=== PATIENT | male | born 1950 | race Caucasian/White ===

== ENCOUNTER 2016-04-13 13:58 | Emergency (ER) | payer OTHER ==
[2016-04-13 14:12] VITALS: PULSE 77
--- NOTE | 2016-04-13 15:48 | EDPHY ---
H & P Time Seen by Provider: 04/13/16 15:40 HPI/ROS: CHIEF COMPLAINT: Ear pain HISTORY OF PRESENT ILLNESS: The patient is a 65 year old male presenting with right ear pain that started yesterday. The patient reports pain in his right ear that comes and goes. It has become progressively more irritating today. He feels his hearing is diminished in his right ear. The patient denies recent cold symptoms. No significant history of ear infections. Past Medical/Surgical History: Hypertension, Arthritis, Right upper extremity laminectomy Social History: Single. Lives in [place]. Smoking Status: Former smoker Physical Exam: General Appearance: Alert, pleasant Eyes: Pupils equal and round, no conjunctival pallor or injection ENT, Mouth: Mucous membranes moist. Ears: cerumen impaction bilaterally, right greater than left Neck: Normal inspection, no tenderness Neurological: A&O, nonfocal exam Skin: Warm and dry Psychiatric: Mood and affect normal Constitutional: Initial Vital Signs Temperature (C) 36.4 C 04/13/16 14:08 Heart Rate 77 04/13/16 14:08 Respiratory Rate 16 04/13/16 14:08 Blood Pressure 155/64 H 04/13/16 14:08 O2 Sat (%) 100 04/13/16 14:08 O2 Delivery Mode Room Air Allergies/Adverse Reactions: Sulfa (Sulfonamide Antibiotics) Allergy (Intermediate, Verified 11/10/15 10:56) Rash Home Medications: Medication Instructions Recorded Gabapentin [Neurontin 300 MG (*)] 300 mg PO TID 09/03/14 Methocarbamol [Robaxin 750 mg (*)] 750 mg PO TID PRN 09/03/14 Meloxicam 15 mg PO DAILY 11/10/15 Torsemide [Demadex] 40 mg PO DAILY10 11/10/15 Acetaminophen [Tylenol 325mg (*)] 650 mg PO Q4HRS PRN #0 tab 11/17/15 Multivitamins [Multivitamin (*)] 1 each PO DAILY #0 tab 11/17/15 Pantoprazole Sodium [Protonix 40mg 40 mg PO DAILY #0 tab 11/17/15 (*)] Vancomycin [Vancocin Oral Liquid] 125 mg PO QID #0 udl 11/17/15 morphINE SR [Ms Contin/Oramorph 15 15 mg PO BID #0 tab 11/17/15 mg (*)] oxyCODONE IR [Oxycodone Ir (*)] 20 mg PO Q6H PRN #0 tab 11/17/15 Medical Decision Making ED Course/Re-evaluation: This pt presents with bilateral cerumen impaction. I do not suspect another etiology for his symptoms. Copious cerumen gently removed by me using lighted ear curette. Small amount of bleeding from right ear canal after cerumen removal obscures TM. Will f/u ENT. Departure - Departure Disposition: Home, Routine, Self-Care Clinical Impression: Cerumen impaction Qualifiers: Laterality: right Qualified Code(s): H61.21 - Impacted cerumen, right ear Condition: Good Instructions: Cerumen Impaction (ED) Additional Instructions: You have been referred to an Ear, Nose, and Throat specialist. If you continue to have ear pain after 24 hours, call the physician provided to arrange a followup appointment. Referrals: Amadeo Graham MD [Primary Care Provider] - As per Instructions Flavio Alexander MD [Medical Doctor] - As per Instructions Report Scribed for: Dona Dennison Report Scribed by: Radha Jin Date of Report: 04/13/16 Time of Report: 15:48 Physician Review and Approval Statement: 04/13/16 15:48 Portions of this note were transcribed by a medical record librarians teacher. I personally performed the history, physical exam, and medical decision-making; and confirmed the accuracy of the information in the transcribed note.
[2016-04-13 16:08] VITALS: BP 149/88; RESP 12; TEMP 98.4; O2SAT 99
== END 2016-04-13 16:08 | disposition home or self-care (01) ==
PROC: F09Z3XZ Cerumen Management Treatment using Cerumen Management Equipment (ICD-10-PCS; principal; 2016-04-13)
DX: H61.21 Impacted cerumen, right ear (principal); I10 Essential (primary) hypertension; Z87.891 Personal history of nicotine dependence

== ENCOUNTER → 2016-10-01 | Outpatient (CLI) | payer OTHER | LOC: BMCIMAGING 15:48 | PROVIDERS: ATTEND Internal Medicine | DX: R06.00 Dyspnea, unspecified (principal); R60.9 Edema, unspecified ==

== ENCOUNTER 2016-10-10 18:38 | Emergency (ER) | payer OTHER ==
[2016-10-10 18:48] VITALS: BP 125/78; PULSE 88; RESP 16; TEMP 97.9; O2SAT 95
--- NOTE | 2016-10-10 18:54 | CPEKG ---
Heart Rate: 83 RR Interval: 723 P-R Interval: 188 QRSD Interval: 102 QT Interval: 380 QTC Interval: 447 P [place]: 26 QRS [place]: 35 T Wave [place]: 39 EKG Severity - BORDERLINE ECG - EKG Impression: SINUS RHYTHM EKG Impression: CONSIDER ANTERIOR INFARCT Electronically Signed By: Wilfredo Haywood 10-Oct-2016 20:55:15
--- NOTE | 2016-10-10 19:01 | EDPHY ---
H & P Stated Complaint: HEART POUNDING/RACING HPI/ROS: Chief Complaint: Palpitations HPI: 65-year-old male developed palpitations while he was being arrested this afternoon. Patient states that he has had increasing edema for the last couple of weeks. He was seen by his physician yesterday and had blood drawn today. Denies any chest pain or shortness of breath. Patient states he is feeling better now. Denies a history of coronary artery disease in the past. Denies any recent illness. No fevers or chills. No nausea or vomiting. Patient is brought in for medical clearance for residential. ROS: 10 point Review of Systems is negative except as noted in the HPI. 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 Social History: Denies smoking, positive for alcohol, no recreational drug use Family History: non-contributory Physical Exam: Gen: Awake, Alert, No Distress HEENT: Nose: no rhinorrhea Eyes: PERRLA, EOMI Mouth: Moist mucosa Neck: Supple, no JVD Chest: nontender, lungs clear to auscultation Heart: S1, S2 normal, no murmur Abd: Soft, non-tender, no guarding Back: no CVA tenderness, no midline tenderness Ext: 3+ nonpitting edema, non-tender Skin: no rash Neuro: CN II-XII intact, Sensation grossly intact, Strength 5/5 in bilateral upper and lower extremities - Personal History Current Tetanus Diphtheria and Acellular Pertussis (TDAP): Yes Tetanus Vaccine Date: 01/2014 - Medical/Surgical History Hx Asthma: No Hx Chronic Respiratory Disease: No Hx Diabetes: No Hx Cardiac Disease: No Hx Renal Disease: No Hx Cirrhosis: No Hx Alcoholism: No Hx HIV/AIDS: No Hx Splenectomy or Spleen Trauma: No Other PMH: L forefoot amp, HTN, ARTHRITIS, right rotator cuff surgery, bilat tib /fib surgery, RUE compartment syndrome, laminectomy. - Social History Smoking Status: Former smoker Constitutional: Initial Vital Signs Temperature (C) 36.6 C 10/10/16 18:46 Heart Rate 88 10/10/16 18:46 Respiratory Rate 16 10/10/16 18:46 Blood Pressure 125/78 H 10/10/16 18:46 O2 Sat (%) 95 10/10/16 18:46 O2 Delivery Mode Room Air Allergies/Adverse Reactions: Sulfa (Sulfonamide Antibiotics) Allergy (Intermediate, Verified 11/10/15 10:56) Rash Home Medications: Medication Instructions Recorded Gabapentin [Neurontin 300 MG (*)] 300 mg PO TID 09/03/14 Methocarbamol [Robaxin 750 mg (*)] 750 mg PO TID PRN 09/03/14 Meloxicam 15 mg PO DAILY 11/10/15 Acetaminophen [Tylenol 325mg (*)] 650 mg PO Q4HRS PRN #0 tab 11/17/15 Multivitamins [Multivitamin (*)] 1 each PO DAILY #0 tab 11/17/15 Lasix 10/10/16 Potassium 10/10/16 Medical Decision Making - Diagnostics EKG Interpretation: ECG time 18:50, there is a sinus rhythm with a rate of 83. Normal axis, normal intervals, there are Q-waves in leads 3 and AVF. There is also some T-wave inversions in V2 and V3. These are unchanged from an ECG of 10 November 2015. ED Course/Re-evaluation: 65-year-old male being brought in for medical clearance for residential. Patient had episode of palpitations while being arrested. He has no new changes on his ECG. He had laboratory is drawn today. In reviewing those patient does have some elevation in his liver function and a low albumin which is likely contributing to his edema. Otherwise no acute electrolyte abnormalities at this time. Patient is symptom-free here. There is no evidence of acute arrhythmia or ischemic process at this time. Patient's has no complaints here. He is refusing IV at this time. He is medically clear for residential. Departure - Departure Disposition: Home, Routine, Self-Care Clinical Impression: Palpitations, Alcohol intoxication Condition: Good Instructions: Palpitations (ED) Additional Instructions: Follow up with primary care physician in about a week. Return emergency depart for increasing chest pain, shortness of breath, fevers, chills, or any other concerns. MEDICALLY CLEAR FOR HALFWAY Referrals: Patient,NotPresent [Primary Care Provider] - As per Instructions
== END 2016-10-10 19:21 | disposition home or self-care (01) ==
LOC: EDUNIT#
DX: R00.2 Palpitations (principal); F10.129 Alcohol abuse with intoxication, unspecified; I50.9 Heart failure, unspecified; I10 Essential (primary) hypertension; Z87.891 Personal history of nicotine dependence

== ENCOUNTER 2016-10-22 14:59 | Emergency (ER) | payer OTHER ==
[2016-10-22 15:06] VITALS: TEMP 98.4
--- NOTE | 2016-10-22 15:27 | EDPHY ---
H & P Time Seen by Provider: 10/22/16 15:14 HPI/ROS: CHIEF COMPLAINT: Can't move his right foot HISTORY OF PRESENT ILLNESS: Patient started having symptoms last as he was sitting in the middle the day reading a book with his right leg crossed over his left. He suddenly realized he could not dorsiflex his right foot. Presents with continued symptoms, moderate in nature. Not associated with back pain or incontinence or headache or any trauma. Not associated with weakness or pain in the foot. Symptoms stable and not better worse with anything. He says it is difficult to walk even with his cane. REVIEW OF SYSTEMS: Eye: no change in vision ENT: no sore throat Cardiac: no chest pain or syncope Pulmonary: no cough or SOB Abdomen: no vomiting, diarrhea, abdominal pain Musculoskeletal: no back pain Skin: Right elbow rash and abrasion after the encounter with his dog Neuro: no headache Constitutional: no fever : no urinary symptoms A comprehensive 10 point review of systems is otherwise negative aside from elements mentioned in the history of present illness. PAST MEDICAL HISTORY: Includes hypertension, arthritis, rotator cuff surgery, spine surgery x2, left forefoot amputation. Social history: Lives in a house with a roommate General Appearance: Alert and conversant, cooperative. Eyes: No scleral icterus. ENT, Mouth: Normal mucous membranes. Respiratory: Normal respiratory effort, breath sounds equal, lungs are clear to auscultation. Cardiovascular: Regular rate and rhythm. Gastrointestinal: Abdomen is soft and non tender. Neurological: Alert and oriented x3. Normally conversant. Patient has normal sensation to light touch in all 4 extremities. He has normal capillary refill and perfusion in both feet. He cannot dorsiflex his right foot. Patellar reflexes are 0-1 and both patella and ankles. Toes are downgoing. Skin: Abrasion on his right elbow shows does not compromise full extension, no lymphangitis, no pus or drainage, no surrounding erythema. Musculoskeletal: No peripheral edema and no joint swelling. No spine tenderness. Psychiatric: Not agitated. Emergency Department course/MDM: Patient presents with isolated foot drop. Differentials extensive includes but not limited to vascular problem, peripheral neuropathy, spinal cord herniated disc, intracranial problem. 1530, Discussed with Dr. Christensen: noncontrast head CT r/o SDH and lumbar spine MRI. 164: MRI per Dr. Landeros shows severe central spinal canal stenosis at L1-2 with a central bulging disc otherwise negative. 1644: Discussed with V. 1655: Negative head CT per Dr. Landeros. 1700: Results discussed, Sudeep Biswas from Neurosurgery in the room consulting at this time 1722: Seen by Kateryna, plan to discharge on oral steroids and physical therapy for right L5 nerve root compression. Smoking Status: Former smoker Constitutional: Initial Vital Signs Temperature (C) 36.9 C 10/22/16 15:03 Heart Rate 83 10/22/16 15:03 Respiratory Rate 18 10/22/16 15:03 Blood Pressure 86/49 L 10/22/16 15:03 O2 Sat (%) 94 10/22/16 15:03 O2 Delivery Mode Room Air Allergies/Adverse Reactions: Sulfa (Sulfonamide Antibiotics) Allergy (Intermediate, Verified 10/22/16 15:01) Rash Home Medications: Medication Instructions Recorded Gabapentin [Neurontin 300 MG (*)] 300 mg PO TID 09/03/14 Methocarbamol [Robaxin 750 mg (*)] 750 mg PO TID PRN 09/03/14 Meloxicam 15 mg PO DAILY 11/10/15 Acetaminophen [Tylenol 325mg (*)] 650 mg PO Q4HRS PRN #0 tab 11/17/15 Multivitamins [Multivitamin (*)] 1 each PO DAILY #0 tab 11/17/15 Lasix 10/10/16 Potassium 10/10/16 Zantac 10/22/16 Medical Decision Making - Diagnostics Imaging Results: Imaging Impressions Head CT 10/22/16 15:32 Impression: Atrophy and microvascular ischemic disease. Findings and recommendations discussed with ALISIA YANEZ at 1655 hour, 2016. Final report concurs with initial preliminary interpretation. Lumbar Spine MRI 10/22/16 15:32 Impression: 1. Moderate canal stenosis at L3-L4, although this is only mildly increased compared to 2010. 2. Severe spinal canal stenosis at L1-L2, due to worsening broad-based central disk bulge and facet disease, new since 2009. 3. Multilevel foraminal stenosis as above described at the individual levels. Findings and recommendations discussed with Dr. Alisia Yanez at 1629 hour, 2016. Final report concurs with initial preliminary interpretation. - Data Points Laboratory Results: Laboratory Results 10/22/16 16:45 10/22/16 16:45 10/22/16 10/22/16 16:45 16:45 WBC 4.41 10^3/uL 10^3/uL (3.80-9.50) RBC 3.01 10^6/uL L 10^6/uL (4.40-6.38) Hgb 10.8 g/dL L g/dL (13.7-17.5) Hct 30.6 % L % (40.0-51.0) MCV 101.7 fL H fL (81.5-99.8) MCH 35.9 pg H pg (27.9-34.1) MCHC 35.3 g/dL g/dL (32.4-36.7) RDW 13.2 % % (11.5-15.2) Plt Count 251 10^3/uL 10^3/uL (150-400) MPV 9.8 fL fL (8.7-11.7) Neut % (Auto) 53.8 % % (39.3-74.2) Lymph % (Auto) 26.8 % % (15.0-45.0) [place] % (Auto) 15.2 % H % (4.5-13.0) Eos % (Auto) 3.2 % % (0.6-7.6) Baso % (Auto) 0.5 % % (0.3-1.7) Nucleat RBC Rel Count 0.0 % % (0.0-0.2) Absolute Neuts (auto) 2.38 10^3/uL 10^3/uL (1.70-6.50) Absolute Lymphs (auto) 1.18 10^3/uL 10^3/uL (1.00-3.00) Absolute Monos (auto) 0.67 10^3/uL 10^3/uL (0.30-0.80) Absolute Eos (auto) 0.14 10^3/uL 10^3/uL (0.03-0.40) Absolute Basos (auto) 0.02 10^3/uL 10^3/uL (0.02-0.10) Absolute Nucleated RBC 0.00 10^3/uL 10^3/uL (0-0.01) Immature Gran % 0.5 % % (0.0-1.1) Immature Gran # 0.02 10^3/uL 10^3/uL (0.00-0.10) Sodium 131 mEq/L L mEq/L (134-144) Potassium 3.3 mEq/L L mEq/L (3.5-5.2) Chloride 98 mEq/L mEq/L (97-110) Carbon Dioxide 21 mEq/l L mEq/l (22-31) Anion Gap 12 mEq/L mEq/L (8-16) BUN 10 mg/dL mg/dL (7-23) Creatinine 1.0 mg/dL mg/dL (0.7-1.3) Estimated GFR > 60 Glucose 86 mg/dL mg/dL (70-100) Calcium 7.8 mg/dL L mg/dL (8.5-10.4) Medications Given: Discontinued Medications Sodium Chloride (Ns) 1,000 mls @ 0 mls/hr IV EDNOW ONE; Wide Open PRN Reason: Protocol Stop: 10/22/16 15:34 Last Admin: 10/22/16 16:54 Dose: 1,000 mls Departure - Departure Disposition: Home, Routine, Self-Care Clinical Impression: Right foot drop Condition: Good Instructions: Foot Drop (ED) Referrals: Zohaib Dexter MD [Medical Doctor] - 5-7 days, call for appt. (Follow-up with Neurosurgery as discussed with Sudeep Biswas.)
[2016-10-22] MEDS ORDERED: NS 1,000 ML IV ONE (15:33)
[2016-10-22 16:58] VITALS: RESP 16; O2SAT 95
[2016-10-22 16:59] LABS: % IMMATURE GRANULYOCYTES 0.5 % (0.0-1.1); ABSOLUTE IMMATURE GRANULOCYTES 0.02 10^3/uL (0.00-0.10); ADD DIFF? NO; ADD MORPH? NO; ADD SCAN? NO; ATYPICAL LYMPHOCYTE FLAG 40 (0-99); FRAGMENT RBC FLAG 0 (0-99); HEMATOCRIT 30.6 % (40.0-51.0); HEMOGLOBIN 10.8 g/dL (13.7-17.5); LEFT SHIFT FLG 0 (0-99); LIPEMIA HEMOLYSIS FLAG 90 (0-99); MEAN CELL HEMOGLOBIN 35.9 pg (27.9-34.1); MEAN CELL HEMOGLOBIN CONCENTR. 35.3 g/dL (32.4-36.7); MEAN CELL VOLUME 101.7 fL (81.5-99.8); MEAN PLATELET VOLUME 9.8 fL (8.7-11.7); PLATELET CLUMPS FLAG 10 (0-99); PLATELET COUNT 251 10^3/uL (150-400); RED BLOOD CELL COUNT 3.01 10^6/uL (4.40-6.38); RED CELL DISTRIBUTION WIDTH 13.2 % (11.5-15.2)
[2016-10-22 17:14] LABS: ANION GAP 12 mEq/L (8-16); CALCIUM 7.8 mg/dL (8.5-10.4); CARBON DIOXIDE 21 mEq/l (22-31); CHLORIDE 98 mEq/L (97-110); GLOMERULAR FILTRATION RATE > 60; GLUCOSE 86 mg/dL (70-100); POTASSIUM 3.3 mEq/L (3.5-5.2); SODIUM 131 mEq/L (134-144)
[2016-10-22 18:00] VITALS: BP 117/70; PULSE 75
--- NOTE | 2016-10-23 08:21 | GCON ---
[f rep st] CONSULTATION NEUROSURGICAL CONSULTATION DATE OF CONSULTATION: 10/22/2016 CHIEF COMPLAINT: Right foot weakness. HISTORY OF PRESENT ILLNESS: The patient is a 65-year-old male. The patient has a history of a previ ous L4-5 instrumentation and fusion with Dr. Bryant in approximately 2008. Approximately 6 da ys ago, he noticed that he was having weakness in his left foot. He was having difficulty raising hi s foot up toward his head. This was not associated with back pain or pain radiating from his back do wn into his legs and feet. He denies any new problems walking, incontinence, fevers, or chills. PAST MEDICAL HISTORY: 1. Hypertension. 2. Osteoarthritis. 3. Chronic pain. PAST SURGICAL HISTORY: Includes L4-[address] Bryant in 2008. MEDICATIONS PRIOR TO ADMISSION: Please see medication list. ALLERGIES: Sulfa. FAMILY HISTORY: Patient has no family history of spinal problems. SOCIAL HISTORY: The patient is single with no children. He does drink alcohol socially, but denies smoking or drug use. REVIEW OF SYSTEMS: Negative. PHYSICAL EXAM: GENERAL APPEARANCE: Patient is a 65-year-old male lying in bed, in no apparent distr ess today. HEAD, EYES, EARS, NOSE, AND THROAT: Negative to drainage. EXTREMITIES: [place], warm, and dry. NEUROLOGICAL: Patient is awake, alert, oriented x4. Pupils equal, round, reactive to light. Extraocular motions are intact. There is no evidence of facial droop. Tongue and uvula are midline . Spinal access muscles are intact. His motor strength is 5 out of 5 in his arms and legs, except f or his left dorsiflexors, which are 0 out of 5, and his left extensor hallucis longus, which is 0 out of 5. Sensation is grossly intact to light touch in his arms and legs. Deep tendon reflexes are 1+ out of 4 in the bilateral biceps, triceps, brachioradialis, patellar, and Achilles. There is a nega tive Melchor with no clonus. DIAGNOSTIC STUDIES: An MRI of the lumbar spine from [facility] on 10/22/2016, shows preservation of the sagittal alignment. At L1-2, there is a right paracentral disk herniation that c auses right-sided foraminal stenosis and mild central canal stenosis. At L2-3, there is a right far lateral disk herniation that causes moderate foraminal stenosis and mild central canal stenosis. L4- 5 has postoperative changes from the decompression and fusion. At L5-S1, there is a broad-based left paracentral disk herniation extending into the foramen, causing compression of the left L5 nerve syl t between L5 and S1 pedicles. A head CT without contrast from today 10/22/2016, shows no acute hemorrhage or abnormality. IMPRESSION: This is a 65-year-old male with a 6-day history of left-sided footdrop, that is likely r elated to his left L5 nerve root compression between the left L5 and S1 pedicle. He is neurologicall y stable. PLAN: All the above discussed in detail with the patient. This patient was seen and examined by Dr. Dexter in the emergency department in ER room 9. At this point in time, we discussed with the patie nt that he has the option of trying conservative care with Medrol Dosepak, and a course of physical t herapy to see if we could improve the strength in his left foot. If his strength is not improving, t hen he would likely require an L5-S1 transforaminal lumbar interbody fusion with decompression of the left L5 nerve root. At this point in time, he would like to start on a course of conservative care. He will be discharged from the emergency department today with a Medrol Dosepak, and has a prescrip tion for some outpatient physical therapy. We will have him scheduled to come for a followup appoint ment with [facility] in approximately 1 to 2 weeks to evaluate his progress wit h physical therapy. He is encouraged to contact [facility] if any questions or problems prior to his followup appointment. /[id number]/MODL
== END 2016-10-22 17:57 | disposition home or self-care (01) ==
DX: M21.371 Foot drop, right foot (principal); I10 Essential (primary) hypertension; E86.9 Volume depletion, unspecified; Z87.891 Personal history of nicotine dependence

== ENCOUNTER → 2016-10-27 | Outpatient (CLI) | payer OTHER | LOC: BMCIMAGING 13:23 | PROVIDERS: ATTEND Internal Medicine | DX: K76.0 Fatty (change of) liver, not elsewhere classified (principal); N28.1 Cyst of kidney, acquired ==

== ENCOUNTER 2016-12-11 05:44 | Inpatient (IN) | payer OTHER ==
[2016-12-11] MEDS ORDERED: ACETAMINOPHEN 500 MG TAB PO ONE (05:50)
[2016-12-11] MEDS ORDERED: fentaNYL 100 MCG/2 ML INJ IT ONE (05:50)
[2016-12-11] MEDS ORDERED: morphINE PF 5 MG/10 ML INJ IT ONE (05:50)
[2016-12-11] MEDS ORDERED: ceFAZolin 2 GM/SWFI 2 GM/20 ML SYR IVP ONE (05:50)
[2016-12-11] MEDS ORDERED: GABAPENTIN 300 MG CAP PO ONE (05:50)
[2016-12-11] MEDS ORDERED: LIDOCAINE 1% 2 ML INJ ID PRN (05:52)
[2016-12-11] MEDS ORDERED: LR 1,000 ML IV ONE (05:52)
[2016-12-11] MEDS ORDERED: TRANEXAMIC ACID 1,000 MG in NS 100 ML IV ONE (06:00)
--- NOTE | 2016-12-11 06:17 | PDHPUP ---
History & Physical Update H&P update statement: This history and physical update is based on an assessment of the patient which was completed after admission or registration (within 24 hours), but prior to the surgery/procedure. H&P update: H&P reviewed & patient examined, no change in patient's condition since H&P completed
[2016-12-11] MEDS ORDERED: BUPIVACAINE 0.25% 30 ML SDV ONE (06:48)
[2016-12-11] MEDS ORDERED: BACITRACIN 50,000 UNITS/10 ML SYR IRR ONE ×2 (06:49→11:43)
[2016-12-11] MEDS ORDERED: THROMBIN (BOVINE) 5,000 UNIT VIAL TP ONE (06:49)
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
[2016-12-11] MEDS ORDERED: PROPOFOL 200 MG/20 ML VIAL ONE (06:55)
[2016-12-11] MEDS ORDERED: REMIFENTANIL HCL 1 MG VIAL ONE ×3 (06:55→11:36)
[2016-12-11] MEDS ORDERED: PROPOFOL/EMULSION 500 MG/50 ML BOTTLE IV ONE ×3 (06:55→11:36)
[2016-12-11] MEDS ORDERED: fentaNYL 100 MCG/2 ML INJ ONE ×4 (06:55→14:38)
[2016-12-11] MEDS ORDERED: DEXAMETHASONE 4 MG/ML VIAL ONE (07:05)
[2016-12-11] MEDS ORDERED: ROCURONIUM 50 MG/5 ML VIAL ONE (07:05)
[2016-12-11] MEDS ORDERED: PHENYLEPHRINE 10 MG/ML SDV ONE (07:18)
[2016-12-11 08:01] LABS: PLATELET COUNT 184 10^3/uL (150-400)
[2016-12-11] MEDS ORDERED: CITRATE DEXTROSE SOLN 500 ML BAG ONE ×2 (08:01→12:16)
[2016-12-11 08:09] LABS: INR 1.26 (0.83-1.16); PROTIME(PATIENT) 15.8 SEC (12.0-15.0)
[2016-12-11] MEDS ORDERED: HYDROmorphONE/DILAUDID 2 MG/ML INJ ONE (09:07)
[2016-12-11] MEDS ORDERED: THROMBIN (BOVINE) 20,000 UNIT VIAL TP ONE ×2 (09:57→11:24)
[2016-12-11] MEDS ORDERED: ceFAZolin 1 GM VIAL ONE (11:05)
[2016-12-11] MEDS ORDERED: LACTULOSE 20 GM/30 ML UDCUP PO PRN (14:14)
[2016-12-11] MEDS ORDERED: oxyCODONE IR 5 MG TAB PO PRN (14:14)
[2016-12-11] MEDS ORDERED: ONDANSETRON 4 MG/2 ML VIAL IVP PRN ×2 (14:14→14:20)
[2016-12-11] MEDS ORDERED: ONDANSETRON DISINTEGRATING 4 MG TAB PO PRN (14:14)
[2016-12-11] MEDS ORDERED: diphenhydrAMINE 25 MG CAP PO PRN (14:14)
[2016-12-11] MEDS ORDERED: MAGNESIUM HYDROXIDE 30 ML UDCUP PO PRN (14:14)
[2016-12-11] MEDS ORDERED: NALOXONE HCL 0.4 MG/ML INJ IVP PRN ×2 (14:14→14:20)
[2016-12-11] MEDS ORDERED: BISACODYL 10 MG SUPP PR PRN (14:14)
[2016-12-11] MEDS ORDERED: morphINE PCA 30 MG/30 ML PCA IV PRN (14:14)
[2016-12-11] MEDS ORDERED: NS W/ 20 KCl/L 1,000 ML IV SCH (14:15)
[2016-12-11] MEDS ORDERED: LR 500 ML IV PRN (14:20)
[2016-12-11] MEDS ORDERED: PROMETHAZINE HCL 25 MG/ML INJ IVP PRN (14:20)
[2016-12-11] MEDS ORDERED: LABETALOL HCL 50 MG/10 ML SYR IVP PRN (14:20)
[2016-12-11] MEDS ORDERED: HYDROmorphONE/DILAUDID 1 MG/ML INJ IVP PRN (14:20)
[2016-12-11] MEDS ORDERED: OXYCODONE/APAP 5/325 TAB PO PRN (14:20)
[2016-12-11] MEDS ORDERED: ALBUTEROL 3 ML DEYVIAL IH PRN (14:20)
[2016-12-11] MEDS ORDERED: ACETAMINOPHEN 500 MG TAB PO PRN (14:20)
--- NOTE | 2016-12-11 14:20 | POSTANESTH ---
Post Anesthetic Evaluation Cardiovascular Status: Normal, Stable Respiratory Status: Normal, Stable Level of Consciousness/Mental Status: Can Participate in Eval Pain Control: Adequate, Prn Tx Ordered Nausea/Vomiting Control: Adequate, Prn Tx Ordered Complications Possibly Related to Anesthesia: None Noted
--- NOTE | 2016-12-11 14:21 | SOAPPROG ---
SOAP Progress Note Assessment/Plan: Assessment: 66 yo M sp L2-S1 fusion Plan: stable to 3N LSO brace when out of bed lovenox starts POD #1 please call with neuro changes 12/11/16 14:19 Subjective: + back pain, no leg pain Objective: Vital Signs Temp Pulse Resp BP Pulse Ox 36.5 C 56 L 20 116/70 91 L 12/11/16 06:37 12/11/16 06:53 12/11/16 06:53 12/11/16 06:53 12/11/16 06:53 Laboratory Results 12/11/16 07:40 12/11/16 10:30 PT 15.8 SEC (12.0-15.0) H 12/11/16 07:40 INR 1.26 (0.83-1.16) H 12/11/16 07:40 awake, alert PERRL, no facial droop BLANCHE 4 + light touch ICD10 Worksheet Patient Problems: Problems Problem Status Onset Alcohol abuse Acute Altered mental status Acute C. difficile diarrhea Acute 11/11/15 Cervical vertebral fusion Acute Compartment syndrome of right upper extremity Acute Hyponatremia Acute Leukocytosis Acute Multiple rib fractures Acute Rhabdomyolysis Acute Staph aureus infection Acute
[2016-12-11] MEDS: fentaNYL 100 MCG/2 ML INJ IVP PRN ×2 (15:15→15:35)
--- NOTE | 2016-12-11 15:50 | GOP ---
[f rep st] OPERATIVE REPORT DATE OF OPERATION: 12/11/2016 SURGEON: Daniel Bryant MD NEUROSURGEON: Daniel Bryant MD HEAT SEAL OPERATOR: MARISABEL West ANESTHESIA: General endotracheal. 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 Intractable back pain. Intractable bilateral lower extremity radicu lopathy and significant footdrop bilaterally. Failed conservative care. POSTOPERATIVE DIAGNOSIS: Severe multilevel lumbar degenerative joint disease with degenerative scoli osis and severe spinal stenosis. Intractable back pain. Intractable bilateral lower extremity radic ulopathy and significant footdrop bilaterally. Failed conservative care. PROCEDURE PERFORMED: Removal of posterior segmental (pedicle screw) fixation at L4-5 with exploratio n of spinal fusion at that level and Re-insertion of spinal fixation device with placement of posteri or segmental (pedicle screw) fixation from L2 through S1. Left-sided far lateral transpedicular deco mpression at the L2-3, L3-4, L4-5 and L5-S1 levels with right-sided decompressions at L4-5 and L5-S1. L2-3, L3-4 and L5-S1 posterior/transforaminal lumbar interbody fusions with L2 through S1 posterolat eral fusion with local autograft and bone morphogenic protein. Use of 2 structural PEEK spacers, loc al autograft and bone morphogenic protein at each of the transforaminal lumbar interbody fusion level s. Use of intraoperative microscopy, fluoroscopy and computer volumetric stereotactic navigation wit h intraoperative neurophysiologic testing. Injection of intrathecal narcotic analgesics and subcutan eous and intramuscular local anesthesia for postoperative pain control. FINDINGS: ESTIMATED BLOOD LOSS: 500 cc. INDICATIONS: The patient is a 66-year-old man with severe lumbar degenerative scoliosis with critica l spinal stenosis and progressive loss of function in his lower extremities. He has severe stenosis and presents now for surgical decompression and stabilization with extension of the fusion, removal a nd replacement of instrumentation. DESCRIPTION OF PROCEDURE: After informed consent was obtained, the patient was taken to the operatin g room and placed in the prone position on the Himanshu table. The lumbosacral area was prepped and d raped in a sterile fashion. After fluoroscopic localization of correct levels, the subcutaneous and intramuscular tissues were infiltrated with local anesthesia. A midline linear incision was then cre ated from approximately L4 through S1. This was carried down to the fascial layer, which was incised using monopolar electrocautery and carried, as best I could, in a subperiosteal plane along the spin ous processes and lamina bilaterally. There was an extensive amount of abnormal tissue and distorted anatomy that required meticulous dissection. Eventually, the prior hardware was identified on the l eft at the L4 and L5 levels and the locking caps, rods and pedicle screws were all removed. The hole s were packed with dry Gelfoam. Following this, left-sided far lateral transpedicular decompressions were performed at the L5-S1 and L4-5 levels with actually right-sided decompressions at those levels as well. Unfortunately, the patient had severe stenosis which required facetectomies at the L3-4 le julisa in order to adequately decompress the stenotic area at the L4-5 levels. This meant that he was g oing to need instrumentation and fusion at the L3-4 level but, in reviewing the preoperative images, the apex of his curve was at L3 and it was not in his best interest to stop there. He also had signi ficant spinal stenosis at L2-3 and L3-4 that we were not planning on addressing but, under the circum stances, I think we should. The incision was therefore carried up to L2 and a subperiosteal dissecti on ensued and the tissues all carefully dissected out. Left-sided far lateral transpedicular decompr essions were then performed after L5-S1, and L4-5 levels were completed and this was extended up to t he L3-4 and L2-3 levels with complete unroofing of the facet joint and neural foramina on the left si de, as well as bilateral decompression by angling the microscope across the midline. The [employer] ronavigational system was then brought in and, using computer volumetric stereotactic navigation, ped icle screws were placed at L2, L3, L4, L5, and S1 bilaterally. Each individual screw was tested neur ophysiologically with monopolar electrostimulation and interpretation of the potentials by the braulio montenegro. The short rods were then inserted first at L5-S1, then at L3-4, then at L2-3 during which time a slight amount of distraction was created across the interspaces and complete diskectomies were perfor med with preparation of the endplates and placement of 2 structural PEEK interbody spacers, local aut ograft and bone morphogenic protein at each level for L2-3, L3-4 and L5-S1 posterior/transforaminal l umbar interbody fusions. The short rods were then removed, and longer rods extending from L2 to S1 w ere then placed and secured under compression in order to facilitate bony union and to minimize the p otential for posterior graft migration. There was a maximal amount of lordosis placed in the arian in the construct in order to minimize the potential for flat back syndrome. Following this, the wound w as copiously irrigated with antibiotic irrigation and meticulous hemostasis was achieved. The remain ing facet joints and lamina were then extensively decorticated along with the transverse processes an d the local autograft along with bone morphogenic protein was placed out laterally for posterolateral fusion from L2 through S1. Following this, a drain was placed. The subcutaneous and intramuscular tissues were re-infiltrated with local anesthesia. The wound was closed in a layered fashion using i nterrupted Vicryl sutures followed by Steri-Strips on the skin, after re-verification of good positio n of the screws, rods and interbody spacers at each of the 3 levels that had interbody fusions. COMPLICATIONS: None. DISPOSITION: The patient was extubated and transferred to the recovery room in stable condition. /[id number]/MODL
[2016-12-11] MEDS: POLYETHYLENE GLYCOL 3350 17 GM PKT PO SCH ×2 (16:17→20:33)
[2016-12-11] MEDS: METHOCARBAMOL 750 MG TAB PO PRN (16:50)
[2016-12-11] MEDS: SENNOSIDES/DOCUSATE SODIUM TAB PO SCH (20:33)
[2016-12-11] MEDS: ceFAZolin 2 GM/DEXTROSE 100 ML IV SCH (20:33)
[2016-12-11] MEDS: ACETAMINOPHEN 500 MG TAB PO SCH (20:33)
[2016-12-11] MEDS: FAMOTIDINE 20 MG TAB PO SCH (20:33)
[2016-12-11] MEDS: morphINE SR 30 MG TAB PO SCH (20:33)
[2016-12-11] MEDS: DIAZEPAM 5 MG TAB PO PRN (20:35)
[2016-12-11] MEDS: oxyCODONE IR 5 MG TAB PO PRN (20:35)
[2016-12-12] MEDS: oxyCODONE IR 5 MG TAB PO PRN ×5 (02:52→21:51)
[2016-12-12] MEDS: ceFAZolin 2 GM/DEXTROSE 100 ML IV SCH (02:52)
[2016-12-12] MEDS: METHOCARBAMOL 750 MG TAB PO PRN ×3 (02:53→15:51)
[2016-12-12 05:07] LABS: PLATELET COUNT 154 10^3/uL (150-400)
[2016-12-12] MEDS: ACETAMINOPHEN 500 MG TAB PO SCH ×3 (05:45→21:50)
--- NOTE | 2016-12-12 08:07 | NEUSURGPN ---
Assessment/Plan: Assessment: 66 yo M sp L2-S1 fusion - POD#1 Plan: PT/OT Post op xrays pending MARQUITA productive, leave in for now Has chronic DF weakness bilaterally Known high ETOH user, monitor for DTs Pain management LSO brace when out of bed lovenox starts POD #1 please call with neuro changes D/w Dr Vigil Subjective: Pt resting in bed, c/o back pain. Denies numbness/tingling. Objective: AAOx3 NAD VSS MAEx4 Motor 5/5 BLE with exception of bilat DF appx 3+/[address]: Yes Urinary Catheter Indication: Other (Use Comment) (to be removed today) Catheter Insertion Date: 12/11/16 - Physician Discussed Patient with : Manny Neurosurgery Physical Exam - Vitals, I&O, Labs I and O 12/11/16 12/12/16 12/13/16 05:59 05:59 05:59 Intake Total 2950 Output Total 2530 360 Balance 420 -360 Weight 86.183 kg Intake: Oral (ml) 450 IV Intake (ml) 2500 Output: Urine (ml) 1500 300 Catheter 1500 300 Estimated Blood Loss (ml) 800 MARQUITA Drain Output (ml) 230 60 Left Back Him[place]hu [place] 230 60 Other: Intake Quantity Yes Sufficient Number of Voids Catheter 1 Vital Signs Temp Pulse Resp BP Pulse Ox 37.1 C 65 14 96/44 L 97 12/12/16 07:29 12/12/16 07:29 12/12/16 07:29 12/12/16 07:29 12/12/16 07:29 Laboratory Results 12/12/16 04:21 12/12/16 04:21 ICD10 Worksheet Patient Problems: Problems Problem Status Onset Alcohol abuse Acute Altered mental status Acute C. difficile diarrhea Acute 11/11/15 Cervical vertebral fusion Acute Compartment syndrome of right upper extremity Acute Hyponatremia Acute Leukocytosis Acute Multiple rib fractures Acute Rhabdomyolysis Acute Staph aureus infection Acute
[2016-12-12] MEDS: busPIRone 15 MG TAB PO SCH (09:13)
[2016-12-12] MEDS: FAMOTIDINE 20 MG TAB PO SCH ×2 (09:13→21:50)
[2016-12-12] MEDS: ENOXAPARIN 40 MG/0.4 ML SYR SC SCH (09:13)
[2016-12-12] MEDS: hydrOXYzine HCL 25 MG TAB PO SCH ×2 (09:14→21:51)
[2016-12-12] MEDS: SENNOSIDES/DOCUSATE SODIUM TAB PO SCH ×2 (09:14→21:50)
[2016-12-12] MEDS: morphINE SR 30 MG TAB PO SCH ×2 (09:14→21:50)
[2016-12-12] MEDS: POLYETHYLENE GLYCOL 3350 17 GM PKT PO SCH ×3 (09:14→21:49)
[2016-12-12] MEDS: GABAPENTIN 300 MG CAP PO SCH ×3 (09:14→21:50)
[2016-12-12] MEDS: TAMSULOSIN HCL 0.4 MG CAP PO SCH (09:15)
[2016-12-12] MEDS: TIOTROPIUM INHALER 18 MCG/DOSE 5 DOSE/MDI IH SCH (09:47)
[2016-12-12] MEDS: FUROSEMIDE 40 MG TAB PO SCH (11:39)
[2016-12-12] MEDS: POTASSIUM CL 10 MEQ TAB PO SCH (11:40)
--- NOTE | 2016-12-12 13:55 | ASMTCMCOM ---
CM Note CM Note Notes: Pt had planned spinal surgery. Lives alone. PT/OT rec inpatient rehab, Judith is assessing and needs more therapy input so she will follow Thursday. Inpatient rehab order requested to [facility]. Provided information to pt about inpatient rehab and the assessment process. CM to follow. Date Signed: 12/12/2016 01:54 PM Electronically Signed By:NEVAEH Dietrich
[2016-12-12] MEDS: CARVEDILOL 6.25 MG TAB PO SCH (18:25)
[2016-12-12] MEDS ORDERED: NON-FORMULARY NEW DRUG (Ranitidine Hcl [Zantac] 300 MG) PO SCH (21:00)
[2016-12-12] MEDS ORDERED: FAMOTIDINE 20 MG TAB PO SCH (21:00)
[2016-12-13] MEDS: oxyCODONE IR 5 MG TAB PO PRN ×6 (02:10→22:15)
[2016-12-13] MEDS: METHOCARBAMOL 750 MG TAB PO PRN ×3 (02:11→17:19)
[2016-12-13] MEDS: ACETAMINOPHEN 500 MG TAB PO SCH ×3 (06:01→21:18)
--- NOTE | 2016-12-13 07:50 | SOAPPROG ---
SOAP Progress Note Assessment/Plan: Assessment: 66 yo M sp L2-S1 fusion - POD#2 Plan: PT/OT Post op xrays show good alignment with intact hardware MARQUITA productive, (220) leave in for now Has chronic DF weakness bilaterally Known high ETOH user, monitor for DTs Pain management LSO brace when out of bed lovenox for DVT ppx awaiting rehab eval, ? d/c thursday will order new H/H for tomorrow please call with neuro changes 12/13/16 07:47 Subjective: no new complaints, still a lot of back pain Objective: Vital Signs Temp Pulse Resp BP Pulse Ox 37.9 C 86 16 140/72 H 94 12/12/16 23:46 12/12/16 23:46 12/12/16 23:46 12/12/16 23:46 12/12/16 23:46 Laboratory Results 12/12/16 04:21 12/12/16 04:21 12/12/16 12/13/16 12/14/16 05:59 05:59 04:59 Intake Total 2950 250 Output Total 2530 1020 Balance 420 -770 PT 15.8 SEC (12.0-15.0) H 12/11/16 07:40 INR 1.26 (0.83-1.16) H 12/11/16 07:40 AAOx3, full strength and sensation except mild bilateral DF weakness, no drift, dressings c/d/i - Pending Discharge Pending Discharge Within 24 Hours: No Pending Discharge Within 48 Hours: Yes Pending Discharge Date: 12/15/16 Pending Discharge Time: 11:00 ICD10 Worksheet Patient Problems: Problems Problem Status Onset Alcohol abuse Acute Altered mental status Acute C. difficile diarrhea Acute 11/11/15 Cervical vertebral fusion Acute Compartment syndrome of right upper extremity Acute Hyponatremia Acute Leukocytosis Acute Multiple rib fractures Acute Rhabdomyolysis Acute Staph aureus infection Acute
[2016-12-13] MEDS: TIOTROPIUM INHALER 18 MCG/DOSE 5 DOSE/MDI IH SCH (08:56)
[2016-12-13] MEDS: ENOXAPARIN 40 MG/0.4 ML SYR SC SCH (09:38)
[2016-12-13] MEDS: POLYETHYLENE GLYCOL 3350 17 GM PKT PO SCH ×3 (09:38→21:17)
[2016-12-13] MEDS: morphINE SR 30 MG TAB PO SCH ×2 (09:38→21:18)
[2016-12-13] MEDS: GABAPENTIN 300 MG CAP PO SCH ×3 (09:39→21:19)
[2016-12-13] MEDS: CARVEDILOL 6.25 MG TAB PO SCH ×2 (09:39→18:12)
[2016-12-13] MEDS: TAMSULOSIN HCL 0.4 MG CAP PO SCH (09:39)
[2016-12-13] MEDS: hydrOXYzine HCL 25 MG TAB PO SCH ×2 (09:39→21:20)
[2016-12-13] MEDS: POTASSIUM CL 10 MEQ TAB PO SCH (09:39)
[2016-12-13] MEDS: FAMOTIDINE 20 MG TAB PO SCH ×2 (09:39→21:19)
[2016-12-13] MEDS: FUROSEMIDE 40 MG TAB PO SCH (09:39)
[2016-12-13] MEDS: busPIRone 15 MG TAB PO SCH (09:39)
[2016-12-13] MEDS: SENNOSIDES/DOCUSATE SODIUM TAB PO SCH ×2 (09:40→21:19)
[2016-12-13] MEDS ORDERED: PNEUMOC 13-VAL CONJ-DIP CRM/PF 0.5 ML SYR IM ONE (14:35)
[2016-12-14] MEDS: oxyCODONE IR 5 MG TAB PO PRN ×5 (01:51→22:06)
[2016-12-14] MEDS: METHOCARBAMOL 750 MG TAB PO PRN (01:51)
[2016-12-14] MEDS: ACETAMINOPHEN 500 MG TAB PO SCH ×3 (07:16→22:05)
[2016-12-14] MEDS: ENOXAPARIN 40 MG/0.4 ML SYR SC SCH (08:29)
[2016-12-14] MEDS: SENNOSIDES/DOCUSATE SODIUM TAB PO SCH ×2 (08:31→22:24)
[2016-12-14] MEDS: FAMOTIDINE 20 MG TAB PO SCH ×2 (08:31→22:05)
[2016-12-14] MEDS: CARVEDILOL 6.25 MG TAB PO SCH ×2 (08:31→18:19)
[2016-12-14] MEDS: FUROSEMIDE 40 MG TAB PO SCH (08:31)
[2016-12-14] MEDS: GABAPENTIN 300 MG CAP PO SCH ×3 (08:31→22:06)
[2016-12-14] MEDS: hydrOXYzine HCL 25 MG TAB PO SCH ×2 (08:32→22:06)
[2016-12-14] MEDS: TAMSULOSIN HCL 0.4 MG CAP PO SCH (08:32)
[2016-12-14] MEDS: morphINE SR 30 MG TAB PO SCH ×2 (08:32→22:05)
[2016-12-14] MEDS: busPIRone 15 MG TAB PO SCH (08:32)
[2016-12-14] MEDS: POTASSIUM CL 10 MEQ TAB PO SCH (08:32)
--- NOTE | 2016-12-14 08:52 | SOAPPROG ---
SOAP Progress Note Assessment/Plan: Assessment: 66 yo M sp L2-S1 fusion - POD#3 Plan: - PT/OT - Post op xrays show good alignment with intact hardware - MARQUITA productive, (515 yesterday) leave in for now - Has chronic DF weakness bilaterally (markedly improved on the left, improving on right) - Known high ETOH user, monitor for DTs - Pain management, reasonable currently - LSO brace when out of bed - lovenox for DVT ppx - awaiting rehab eval, ? d/c thursday - followup H/H - please call with neuro changes 12/14/16 08:50 Subjective: no new complaints Objective: Vital Signs Temp Pulse Resp BP Pulse Ox 37.1 C 62 16 112/61 93 12/14/16 07:25 12/14/16 07:25 12/14/16 07:25 12/14/16 07:25 12/14/16 07:25 Laboratory Results 12/12/16 04:21 12/12/16 04:21 12/13/16 12/14/16 12/15/16 06:59 05:59 05:59 Intake Total Output Total 60 Balance -60 PT 15.8 SEC (12.0-15.0) H 12/11/16 07:40 INR 1.26 (0.83-1.16) H 12/11/16 07:40 AAOx3, full strength except right DF 3/5 (improved), sensation intact, dressings c/d/i - Pending Discharge Pending Discharge Within 24 Hours: Yes Pending Discharge Within 48 Hours: Yes Pending Discharge Date: 12/15/16 Pending Discharge Time: 11:00 ICD10 Worksheet Patient Problems: Problems Problem Status Onset Alcohol abuse Acute Altered mental status Acute C. difficile diarrhea Acute 11/11/15 Cervical vertebral fusion Acute Compartment syndrome of right upper extremity Acute Hyponatremia Acute Leukocytosis Acute Multiple rib fractures Acute Rhabdomyolysis Acute Staph aureus infection Acute
[2016-12-14] MEDS: TIOTROPIUM INHALER 18 MCG/DOSE 5 DOSE/MDI IH SCH (08:56)
[2016-12-14] MEDS: POLYETHYLENE GLYCOL 3350 17 GM PKT PO SCH ×3 (09:09→22:24)
[2016-12-15] MEDS: METHOCARBAMOL 750 MG TAB PO PRN ×2 (03:33→12:49)
[2016-12-15] MEDS: oxyCODONE IR 5 MG TAB PO PRN ×6 (03:33→20:56)
[2016-12-15] MEDS: ACETAMINOPHEN 500 MG TAB PO SCH ×3 (06:37→20:56)
--- NOTE | 2016-12-15 08:21 | NEUSURGPN ---
Date of Surgery: 12/11/16 Post Op Day: 4 Assessment/Plan: 66 yo M sp L2-S1 fusion - POD#4 - PT/OT - Post op xrays show good alignment with intact hardware - MARQUITA productive, (390 yesterday) leave in for now, appears more sanguinous today - Has chronic DF weakness bilaterally (markedly improved on the left, improving on right) - Known high ETOH user, monitor for DTs - Pain management, patient feels pain is under control currently - LSO brace when out of bed - lovenox for DVT ppx - awaiting rehab eval - followup H/H 23.2/7.9 patient denies dizziness, lightheadedness. If patient becomes symptomatic, may consider IV bolus 500 NS - please call with neurosurgery with questions/concerns Discussed with Dr Love Subjective: Patient denies dizziness Objective: AAOx3 f full strength except right DF 3/5 (improved) sensation intact dressings c/d/i MARQUITA in place Neuro Check Frequency: per routine Urinary Catheter in Place: No Catheter Insertion Date: 12/11/16 - Physician Discussed Patient with : Manny Neurosurgery Physical Exam - Vitals, I&O, Labs I and O 12/14/16 12/15/16 12/16/16 05:59 05:59 05:59 Intake Total Output Total 390 Balance -390 Intake: Oral (ml) Output: Urine (ml) Urinal MARQUITA Drain Output (ml) 390 Left Back [place]hu [place] 390 Other: Number of Voids Toilet Urinal Number of Stools Urinal 1 Vital Signs Temp Pulse Resp BP Pulse Ox 36.9 C 56 L 16 106/56 L 95 12/15/16 07:45 12/15/16 07:45 12/15/16 07:45 12/15/16 08:12 12/15/16 07:45 Laboratory Results 12/14/16 10:07 12/12/16 04:21 ICD10 Worksheet Patient Problems: Problems Problem Status Onset Alcohol abuse Acute Altered mental status Acute C. difficile diarrhea Acute 11/11/15 Cervical vertebral fusion Acute Compartment syndrome of right upper extremity Acute Hyponatremia Acute Leukocytosis Acute Multiple rib fractures Acute Rhabdomyolysis Acute Staph aureus infection Acute
[2016-12-15] MEDS: SENNOSIDES/DOCUSATE SODIUM TAB PO SCH ×2 (08:27→20:58)
[2016-12-15] MEDS: ENOXAPARIN 40 MG/0.4 ML SYR SC SCH (08:27)
[2016-12-15] MEDS: POLYETHYLENE GLYCOL 3350 17 GM PKT PO SCH ×3 (08:27→20:58)
[2016-12-15] MEDS: TAMSULOSIN HCL 0.4 MG CAP PO SCH (08:28)
[2016-12-15] MEDS: GABAPENTIN 300 MG CAP PO SCH ×3 (08:28→20:55)
[2016-12-15] MEDS: hydrOXYzine HCL 25 MG TAB PO SCH ×2 (08:28→20:56)
[2016-12-15] MEDS: CARVEDILOL 6.25 MG TAB PO SCH ×2 (08:28→17:37)
[2016-12-15] MEDS: POTASSIUM CL 10 MEQ TAB PO SCH (08:28)
[2016-12-15] MEDS: busPIRone 15 MG TAB PO SCH (08:29)
[2016-12-15] MEDS: FUROSEMIDE 40 MG TAB PO SCH (08:29)
[2016-12-15] MEDS: morphINE SR 30 MG TAB PO SCH ×2 (08:29→20:56)
[2016-12-15] MEDS: FAMOTIDINE 20 MG TAB PO SCH ×2 (08:29→20:55)
[2016-12-15] MEDS: TIOTROPIUM INHALER 18 MCG/DOSE 5 DOSE/MDI IH SCH (09:00)
--- NOTE | 2016-12-15 16:42 | ASMTCMCOM ---
CM Note CM Note Notes: Pt does not qualify for [facility] inpatient rehab. Pt considering SNF vs. home w [facility]. Pt gives permission for this CM to talk to sister Evelyn who is in [place], she thinks SNF safest d/c, [facility] or [facility]. Pt agreeable to SNF referrals to see who has bed availability pt wants private room. Referrals sent to [facility], [facility], [facility] and [facility]. CM to follow. Date Signed: 12/15/2016 04:41 PM Electronically Signed By:NEVAEH Dietrich
--- NOTE | 2016-12-15 16:42 | ASMTCMCOM ---
CM Note CM Note Notes: Pt does not qualify for [facility] inpatient rehab. Pt considering SNF vs. home w [facility]. Pt gives permission for this CM to talk to sister Evelyn who is in [place], she thinks SNF safest d/c, [facility] or [facility]. Pt agreeable to SNF referrals to see who has bed availability pt wants private room. Referrals sent to [facility], [facility], [facility] and [facility]. CM to follow. Date Signed: 12/15/2016 04:41 PM Electronically Signed By:NEVAEH Dietrich
--- NOTE | 2016-12-15 16:42 | ASMTCMCOM ---
CM Note CM Note Notes: Pt does not qualify for [facility] inpatient rehab. Pt considering SNF vs. home w [facility]. Pt gives permission for this CM to talk to sister Evelyn who is in [place], she thinks SNF safest d/c, [facility] or [facility]. Pt agreeable to SNF referrals to see who has bed availability pt wants private room. Referrals sent to [facility], [facility], [facility] and [facility]. CM to follow. Date Signed: 12/15/2016 04:41 PM Electronically Signed By:NEVAEH Dietrich
[2016-12-15] MEDS: DIAZEPAM 5 MG TAB PO PRN (20:56)
[2016-12-15 23:07] VITALS: RESP 16
[2016-12-16] MEDS: DIAZEPAM 5 MG TAB PO PRN ×2 (02:23→21:49)
[2016-12-16] MEDS: oxyCODONE IR 5 MG TAB PO PRN ×6 (02:24→21:49)
[2016-12-16] MEDS: ACETAMINOPHEN 500 MG TAB PO SCH ×3 (06:03→21:49)
--- NOTE | 2016-12-16 08:02 | NEUSURGPN ---
Assessment/Plan: 66 yo M sp L2-S1 fusion - POD#5 - PT/OT - Post op xrays show good alignment with intact hardware - Will remove MARQUITA drain - Has chronic DF weakness bilaterally (markedly improved on the left, improving on right) - Known high ETOH user, monitor for DTs - Pain management, patient feels pain is under control currently - LSO brace when out of bed - lovenox for DVT ppx - awaiting rehab eval - hemoglobin 6.9, SBP in the 90s, will given 2 units PRBC today - please call with neurosurgery with questions/concerns -Seen with Dr Love Subjective: low back pain, denies any light headedness Objective: NAD A&Ox3 MAEx4, Incision c/d/i. MARQUITA drain serosanguineous. 5/5 and equal in BUE and BLE except DF 3/5 bilaterally. Catheter Insertion Date: 12/11/16 - Physician Patient Seen by : Manny Neurosurgery Physical Exam - Vitals, I&O, Labs I and O 12/15/16 12/16/16 12/17/16 05:59 05:59 05:59 Intake Total 250 Output Total 390 310 Balance -390 -60 Intake: Oral (ml) 250 Output: MARQUITA Drain Output (ml) 390 310 Left Back Himanshu [place] 390 310 Other: Intake Quantity Yes Sufficient Number of Stools Urinal 1 Vital Signs Temp Pulse Resp BP Pulse Ox 36.8 C 59 L 16 101/54 L 95 12/16/16 07:49 12/16/16 07:49 12/16/16 07:49 12/16/16 07:49 12/16/16 07:49 Laboratory Results 12/16/16 04:38 12/12/16 04:21 ICD10 Worksheet Patient Problems: Problems Problem Status Onset Alcohol abuse Acute Altered mental status Acute C. difficile diarrhea Acute 11/11/15 Cervical vertebral fusion Acute Compartment syndrome of right upper extremity Acute Hyponatremia Acute Leukocytosis Acute Multiple rib fractures Acute Rhabdomyolysis Acute Staph aureus infection Acute
[2016-12-16] MEDS: POLYETHYLENE GLYCOL 3350 17 GM PKT PO SCH ×3 (09:00→21:55)
[2016-12-16] MEDS: TIOTROPIUM INHALER 18 MCG/DOSE 5 DOSE/MDI IH SCH (09:00)
[2016-12-16] MEDS: ENOXAPARIN 40 MG/0.4 ML SYR SC SCH (09:48)
[2016-12-16] MEDS: morphINE SR 30 MG TAB PO SCH ×2 (09:48→20:11)
[2016-12-16] MEDS: hydrOXYzine HCL 25 MG TAB PO SCH ×2 (09:49→20:11)
[2016-12-16] MEDS: busPIRone 15 MG TAB PO SCH (09:49)
[2016-12-16] MEDS: GABAPENTIN 300 MG CAP PO SCH ×3 (09:49→21:49)
[2016-12-16] MEDS: POTASSIUM CL 10 MEQ TAB PO SCH (09:49)
[2016-12-16] MEDS: CARVEDILOL 6.25 MG TAB PO SCH ×2 (09:49→17:57)
[2016-12-16] MEDS: FAMOTIDINE 20 MG TAB PO SCH ×2 (09:49→20:11)
[2016-12-16] MEDS: SENNOSIDES/DOCUSATE SODIUM TAB PO SCH ×2 (09:49→20:11)
[2016-12-16] MEDS: TAMSULOSIN HCL 0.4 MG CAP PO SCH (09:50)
[2016-12-16] MEDS: FUROSEMIDE 40 MG TAB PO SCH (09:50)
[2016-12-16] MEDS: METHOCARBAMOL 750 MG TAB PO PRN (10:00)
--- NOTE | 2016-12-16 16:39 | ASMTCMCOM ---
CM Note CM Note Notes: Pt accepted at [facility], chooses [facility] who will have private room. Updated pt sister Evelyn ([phone]). DC POC: [facility] when medically stable. Date Signed: 12/16/2016 04:39 PM Electronically Signed By:NEVAEH Dietrich
--- NOTE | 2016-12-16 16:39 | ASMTCMCOM ---
CM Note CM Note Notes: Pt accepted at [facility], chooses [facility] who will have private room. Updated pt sister Evelyn ([phone]). DC POC: [facility] when medically stable. Date Signed: 12/16/2016 04:39 PM Electronically Signed By:NEVAEH Dietrich
--- NOTE | 2016-12-16 16:39 | ASMTCMCOM ---
CM Note CM Note Notes: Pt accepted at [facility], chooses [facility] who will have private room. Updated pt sister Evelyn ([phone]). DC POC: [facility] when medically stable. Date Signed: 12/16/2016 04:39 PM Electronically Signed By:NEVAEH Dietrich
[2016-12-17] MEDS: oxyCODONE IR 5 MG TAB PO PRN ×4 (02:22→13:47)
[2016-12-17] MEDS: METHOCARBAMOL 750 MG TAB PO PRN (05:39)
[2016-12-17] MEDS: ACETAMINOPHEN 500 MG TAB PO SCH ×2 (05:39→13:45)
--- NOTE | 2016-12-17 07:24 | SOAPPROG ---
SOAP Progress Note Assessment/Plan: Assessment: 66 yo male s/p L2-S1 TLIF. Doing well overall. He notices more movement and sensation in his right foot since surgery His pain is well controlled Post op xrays shows well positioned hardware Plan: DC to SNF today. 12/17/16 07:20 Subjective: awake, alert, comfortable. Denies any worsening LE symptoms. He is pleased that he can move his right foot more and has more sensation in it since surgery Objective: Vital Signs Temp Pulse Resp BP Pulse Ox 36.7 C 63 16 115/70 94 12/17/16 00:00 12/17/16 00:00 12/17/16 00:00 12/17/16 00:00 12/17/16 00:00 Laboratory Results 12/16/16 14:54 12/12/16 04:21 12/16/16 12/17/16 12/18/16 05:59 05:59 05:59 Intake Total 250 1700 Output Total 310 100 Balance -60 1600 PT 15.8 SEC (12.0-15.0) H 12/11/16 07:40 INR 1.26 (0.83-1.16) H 12/11/16 07:40 Neuro: BISHOP, sens +LT follows commands LE, no edema, no Homans Right DF is 1/5, Left is 3/5 Incision: CDI no MARQUITA ICD10 Worksheet Patient Problems: Problems Problem Status Onset Alcohol abuse Acute Altered mental status Acute C. difficile diarrhea Acute 11/11/15 Cervical vertebral fusion Acute Compartment syndrome of right upper extremity Acute Hyponatremia Acute Leukocytosis Acute Multiple rib fractures Acute Rhabdomyolysis Acute Staph aureus infection Acute
--- NOTE | 2016-12-17 07:27 | PDIAF ---
- Diagnosis Diagnosis: lumbar DJD/stenosis. Status post L2-1 TLIF Code Status: Full Code - Medication Management Discharge Medications: Medications to Continue on Transfer Gabapentin [Neurontin 300 MG (*)] 300 mg PO TID 09/03/14 [Last Taken 12/11/16 03 :00] Methocarbamol [Robaxin 750 mg (*)] 750 mg PO TID PRN 09/03/14 [Last Taken 15:00] Meloxicam 15 mg PO DAILY 11/10/15 [Last Taken 12/03/16] Carvedilol [Coreg (*)] 6.25 mg PO BIDMEAL 12/11/16 [Last Taken 12/11/16] Furosemide [Lasix 40 MG (*)] 40 mg PO DAILY 12/11/16 [Last Taken 12/10/16] Potassium Cl [Klor-Con] 10 meq PO DAILY 12/11/16 [Last Taken 12/10/16] Ranitidine HCl [Zantac] 300 mg PO HS 12/11/16 [Last Taken 12/10/16] Tamsulosin HCl [Flomax 0.4 MG (*)] 0.4 mg PO DAILY 12/11/16 [Last Taken 12/10/16 ] Tiotropium Inhaler [Spiriva Inhaler] 1 inh IH DAILY 12/11/16 [Last Taken ] busPIRone [Buspar (*)] 30 mg PO DAILY 12/11/16 [Last Taken 12/10/16] hydrOXYzine HCL [Vistaril 25MG] 25 mg PO BID 12/11/16 [Last Taken 12/10/16] Discharge Medications: Refer to the Discharge Home Medication list for PRN reason. - Orders Services needed: Home Care, Registered Nurse, Physical Therapy, Occupational Therapy Home Care Face to Face: I certify that this patient was under my care and that I had the required [id number] encounter meeting the encounter requirements on the discharge day. My findings support the fact that the patient is homebound as defined in Home Care Face to Face Continued: CMS Chapter 7 Medicare Benefits Manual 30.1.1 , The condition of the patient is such that there exists a normal inability to leave home and consequently, leaving home would require a considerable and taxing effort. Isolation Type: None Diet Recommendation: no restrictions on diet Diet Texture: Regular Texture Diet Mandel: Not applicable Jhon Stockings Discontinue Date: continue while in rehab Wound Care Instructions: check incision daily. do not remove steri strips Activity/Weight Bearing Restrictions: no bending, twisting or lifting over 10 lbs x 6 weeks Equipment: LSO brace when out of bed - Follow Up Care Current Providers and Referrals: Amadeo Graham MD [Primary Care Provider] -
[2016-12-17 07:38] VITALS: PULSE 77; TEMP 98.5; O2SAT 92
[2016-12-17] MEDS: TIOTROPIUM INHALER 18 MCG/DOSE 5 DOSE/MDI IH SCH (08:02)
[2016-12-17] MEDS: POLYETHYLENE GLYCOL 3350 17 GM PKT PO SCH ×2 (08:22→08:26)
[2016-12-17] MEDS: ENOXAPARIN 40 MG/0.4 ML SYR SC SCH (08:22)
[2016-12-17] MEDS: CARVEDILOL 6.25 MG TAB PO SCH (08:23)
[2016-12-17] MEDS: POTASSIUM CL 10 MEQ TAB PO SCH (08:23)
[2016-12-17] MEDS: morphINE SR 30 MG TAB PO SCH (08:23)
[2016-12-17] MEDS: hydrOXYzine HCL 25 MG TAB PO SCH (08:24)
[2016-12-17] MEDS: SENNOSIDES/DOCUSATE SODIUM TAB PO SCH (08:24)
[2016-12-17] MEDS: GABAPENTIN 300 MG CAP PO SCH (08:24)
[2016-12-17] MEDS: busPIRone 15 MG TAB PO SCH (08:24)
[2016-12-17] MEDS: FAMOTIDINE 20 MG TAB PO SCH (08:24)
[2016-12-17] MEDS: FUROSEMIDE 40 MG TAB PO SCH ×2 (08:33→13:47)
[2016-12-17] MEDS: TAMSULOSIN HCL 0.4 MG CAP PO SCH (08:46)
[2016-12-17 08:54] VITALS: BP 118/68
--- NOTE | 2016-12-17 14:22 | ASDISCHSUM ---
Discharge Information Plan Status:SNF Medically Cleared to Leave: Discharge Date:12/17/2016 02:16 PM D/C Disposition:Residential Facility ADT D/C Disposition:Other Rehab, Not [place] Projected Discharge Date:12/17/2016 11:00 AM Transportation at D/C:Wheelchair Van Discharge Delay Reason: Follow-Up Date:12/17/2016 11:00 AM Discharge Slot: Final Diagnosis: Placement Information Referral Type:Rehabilitation Hospital Referral ID:[id number] Provider Name: Address 1: Phone Number: Address 2: Fax Number: City: Selection Factors: State: Referral Type:*Long-Term/SNF Referral ID:[id number] Provider Name:[facility] Address 1:[address] [facility] Address 2: City:[place] Selection Factors: State:[place] Patient Contact Information Contact Name:KRISTAN Relationship:Friend Address:[address] [place] [address] Work Phone: City:[place] Alternate Phone: State/Zip Code:[place] [address] Email: Financial Information Financial Class: Primary Plan Desc:MEDICARE INPATIENT Primary Plan Number:[id number] Secondary Plan Desc:[place] Secondary Plan Number:[id number] Assessment Information [facility] CM Progress Note CM Note CM Note Notes: Pt had planned spinal surgery. Lives alone. PT/OT rec inpatient rehab, Judith is assessing and needs more therapy input so she will follow Thursday. Inpatient rehab order requested to [facility]. Provided information to pt about inpatient rehab and the assessment process. CM to follow. Date Signed: 12/12/2016 01:54 PM Electronically Signed By:NEVAEH Dietrich [facility] CM Progress Note CM Note CM Note Notes: Pt does not qualify for [facility] inpatient rehab. Pt considering SNF vs. home w [facility]. Pt gives permission for this CM to talk to sister Evelyn who is in [place], she thinks [facility]. Pt agreeable to SNF referrals to see who has bed availability pt wants private room. Referrals sent to [facility], [facility], [facility] and [facility]. CM to follow. Date Signed: 12/15/2016 04:41 PM Electronically Signed By:NEVAEH Dietrich [facility] CM Progress Note CM Note CM Note Notes: Pt accepted at [facility] and [facility], chooses who will have private room. Updated pt sister Evelyn ([phone]). DC POC: [facility] when medically stable. Date Signed: 12/16/2016 04:39 PM Electronically Signed By:NEVAEH Dietrich [facility] CM Progress Note CM Note CM Note Notes: Pt medically stable for d/c to [facility]. [facility]. [facility] set up wc transport for 1400. VALERIE Rivas to call report. Date Signed: 12/17/2016 02:21 PM Electronically Signed By:NEVAEH Dietrich Intervention Information
--- NOTE | 2016-12-17 14:22 | ASMTCMCOM ---
CM Note CM Note Notes: Pt medically stable for d/c to [facility]. Orders sent in [employer]. [place] set up wc transport for 1400. VALERIE Rivas to call report. Date Signed: 12/17/2016 02:21 PM Electronically Signed By:NEVAEH Dietrich
--- NOTE | 2016-12-17 14:22 | ASMTCMCOM ---
CM Note CM Note Notes: Pt medically stable for d/c to [facility]. Orders sent in [employer]. [place] set up wc transport for 1400. VALERIE Rivas to call report. Date Signed: 12/17/2016 02:21 PM Electronically Signed By:NEVAEH Dietrich
--- NOTE | 2016-12-17 14:22 | ASDISCHSUM ---
Discharge Information Plan Status:SNF Medically Cleared to Leave: Discharge Date:12/17/2016 02:16 PM D/C Disposition:Long Term Facility ADT D/C Disposition:Other Rehab, Not [place] Projected Discharge Date:12/17/2016 11:00 AM Transportation at D/C:Wheelchair Van Discharge Delay Reason: Follow-Up Date:12/17/2016 11:00 AM Discharge Slot: Final Diagnosis: Placement Information Referral Type:Rehabilitation Hospital Referral ID:[id number] Provider Name: Address 1: Phone Number: Address 2: Fax Number: City: Selection Factors: State: Referral Type:*Assisted/SNF Referral ID:[id number] Provider Name:[facility] Address 1:[address] [facility] [facility] [address] [facility] Address 2: City:[place] Selection Factors: State:[place] Patient Contact Information Contact Name:KRISTAN Relationship:Friend Address:[address] [place] [address] Work Phone: City:[place] Alternate Phone: State/Zip Code:[place] [address] Email: Financial Information Financial Class: Primary Plan Desc:MEDICARE INPATIENT Primary Plan Number:[id number] Secondary Plan Desc:[place] Secondary Plan Number:[id number] Assessment Information [facility] CM Progress Note CM Note CM Note Notes: Pt had planned spinal surgery. Lives alone. PT/OT rec inpatient rehab, Judith is assessing and needs more therapy input so she will follow Thursday. Inpatient rehab order requested to [facility]. Provided information to pt about inpatient rehab and the assessment process. CM to follow. Date Signed: 12/12/2016 01:54 PM Electronically Signed By:NEVAEH Dietrich [facility] CM Progress Note CM Note CM Note Notes: Pt does not qualify for [facility] inpatient rehab. Pt considering SNF vs. home w [facility]. Pt gives permission for this CM to talk to sister Evelyn who is in [place], she thinks [facility]. Pt agreeable to SNF referrals to see who has bed availability pt wants private room. Referrals sent to [facility], [facility], [facility] and [facility]. CM to follow. Date Signed: 12/15/2016 04:41 PM Electronically Signed By:NEVAEH Dietrich [facility] CM Progress Note CM Note CM Note Notes: Pt accepted at [facility] and [facility], chooses who will have private room. Updated pt sister Evelyn ([phone]). DC POC: [facility] when medically stable. Date Signed: 12/16/2016 04:39 PM Electronically Signed By:NEVAEH Dietrich [facility] CM Progress Note CM Note CM Note Notes: Pt medically stable for d/c to [facility]. [facility]. [facility] set up wc transport for 1400. VALERIE Rivas to call report. Date Signed: 12/17/2016 02:21 PM Electronically Signed By:NEVAEH Dietrich Intervention Information
--- NOTE | 2016-12-17 14:22 | ASDISCHSUM ---
Discharge Information Plan Status:SNF Medically Cleared to Leave: Discharge Date:12/17/2016 02:16 PM D/C Disposition:[facility] ADT D/C Disposition:Other Rehab, Not [place] Projected Discharge Date:12/17/2016 11:00 AM Transportation at D/C:Wheelchair Van Discharge Delay Reason: Follow-Up Date:12/17/2016 11:00 AM Discharge Slot: Final Diagnosis: Placement Information Referral Type:Rehabilitation Hospital Referral ID:[id number] Provider Name: Address 1: Phone Number: Address 2: Fax Number: City: Selection Factors: State: Referral Type:*Penitentiary/SNF Referral ID:[id number] Provider Name:[facility] Address 1:[address] [facility] Address 2: City:[place] Selection Factors: State:[place] Patient Contact Information Contact Name:KRSITAN Relationship:Friend Address:[address] [place] [address] Work Phone: City:[place] Alternate Phone: State/Zip Code:[place] [address] Email: Financial Information Financial Class: Primary Plan Desc:MEDICARE INPATIENT Primary Plan Number:[id number] Secondary Plan Desc:[place] Secondary Plan Number:[id number] Assessment Information [facility] CM Progress Note CM Note CM Note Notes: Pt had planned spinal surgery. Lives alone. PT/OT rec inpatient rehab, Judith is assessing and needs more therapy input so she will follow Thursday. Inpatient rehab order requested to Chel Gonzáels. Provided information to pt about inpatient rehab and the assessment process. CM to follow. Date Signed: 12/12/2016 01:54 PM Electronically Signed By:NEVAEH Dietrich [facility] CM Progress Note CM Note CM Note Notes: Pt does not qualify for [facility] inpatient rehab. Pt considering SNF vs. home w [facility]. Pt gives permission for this CM to talk to sister Evelyn who is in [place], she thinks [facility]. Pt agreeable to SNF referrals to see who has bed availability pt wants private room. Referrals sent to [facility], [facility], [facility] and [facility]. CM to follow. Date Signed: 12/15/2016 04:41 PM Electronically Signed By:NEVAEH Dietrich [facility] CM Progress Note CM Note CM Note Notes: Pt accepted at [facility] and [facility], chooses who will have private room. Updated pt sister Evelyn ([phone]). DC POC: [facility] when medically stable. Date Signed: 12/16/2016 04:39 PM Electronically Signed By:NEVAEH Dietrich [facility] CM Progress Note CM Note CM Note Notes: Pt medically stable for d/c to [facility]. [facility] set up wc transport for 1400. VALERIE Rivas to call report. Date Signed: 12/17/2016 02:21 PM Electronically Signed By:NEVAEH Dietrich Intervention Information
--- NOTE | 2016-12-17 14:22 | ASMTCMCOM ---
CM Note CM Note Notes: Pt medically stable for d/c to [facility]. Orders sent in [employer]. [place] set up wc transport for 1400. VALERIE Rivas to call report. Date Signed: 12/17/2016 02:21 PM Electronically Signed By:NEVAEH Dietrich
--- NOTE | 2016-12-17 22:51 | GDS ---
[f rep st] DISCHARGE SUMMARY DISCHARGE DIAGNOSIS: Multilevel lumbar degenerative disk disease and spinal stenosis. HOSPITAL COURSE: The patient is a pleasant 66-year-old male with a history of severe lumbar degenera tive scoliosis and critical spinal stenosis and progressive loss of function in his bilateral lower e xtremities. The patient failed to improve with conservative treatment and was felt to be a candidate for surgical intervention. He was taken to the operating room on 12/11/2016, where he underwent an L2 through S1 transforaminal lumbar interbody fusion. There were no intraoperative complications. P ostoperatively, the patient was transferred to the floor where he remained neurologically stable. Du ring the patient's recovery, he noted improved strength and sensation in his right foot. The patient 's pain was controlled with oral and IV pain medications and muscle relaxers. He was fitted with an LSO brace and seen by Physical Therapy and Occupational Therapy. The patient made good progress over all during his hospitalization. He did require 2 units of packed red blood cell transfusion secondar y to acute postoperative anemia secondary to intraoperative blood loss. Ultimately, the patient was deemed stable for transfer to [facility] on 12/17/2016. The patient was provided discharge instructio ns and was instructed to contact our office with any questions or concerns and to follow up with us i n approximately 2-3 weeks for a postoperative appointment. /[id number]/MODL
== END 2016-12-17 14:16 | DRG 457 ==
LOC: F3N 05:44
PROVIDERS: ADMIT Neurological Surgery; ATTEND Neurological Surgery
DX: M41.86 Other forms of scoliosis, lumbar region (principal); M47.26 Other spondylosis with radiculopathy, lumbar region; M47.27 Other spondylosis with radiculopathy, lumbosacral region; M48.061 Spinal stenosis, lumbar region without neurogenic claudication; M48.07 Spinal stenosis, lumbosacral region; M21.371 Foot drop, right foot; D62 Acute posthemorrhagic anemia; Z98.1 Arthrodesis status; Z96.652 Presence of left artificial knee joint
CPT/HCPCS: 97110-GP; 97116-GP; 97161-GP; 97166-GO; 97530-GO; 97535-GO; C1713; G0009; G8978-GP-CK; G8979-GP-CI; G8987-GO-CK; G8988-GO-CI; G8989-GO-CJ; J0171; J0690; J1100; J1170; J1650; J2274; J2370; J2704; J3010; J7060; P9016

== ENCOUNTER → 2017-01-29 | Outpatient (CLI) | payer OTHER | LOC: BHFA 11:30 | PROVIDERS: ATTEND Internal Medicine Cardiovascular Disease | DX: R06.02 Shortness of breath (principal) ==

== ENCOUNTER → 2017-04-01 | Outpatient (CLI) | payer OTHER | LOC: FIMAGING 12:21 | PROVIDERS: ATTEND Physician Assistant Surgical | DX: Z09 Encounter for follow-up examination after completed treatment for conditions other than malignant neoplasm (principal); Z98.1 Arthrodesis status ==

== ENCOUNTER 2018-07-15 06:07 | Inpatient (IN) | payer OTHER | END 2018-07-19 11:58 | LOC: F3N 06:07 ==